=== PATIENT | male | born 1940 | race Caucasian/White ===

== ENCOUNTER → 2017-08-25 | Outpatient (CLI) | payer MEDICARE ==
--- NOTE | 2017-08-25 11:51 | RAD ---
CT of the lumbar spine without contrast 08/25/2017 Indication: Low back pain following recent fall. Comparison study: None Technique: Multidetector CT imaging of the lumbar spine was performed without the administration of contrast. Findings: No evidence of acute fracture or alignment abnormality is identified. No spondylolysis or significant spondylolisthesis is seen. Vertebral body heights are maintained. There is diffuse degenerative disc space narrowing throughout the lumbar spine. Facet joints remain aligned. There is diffuse facet arthrosis. Large bridging vertebral body osteophytes are seen laterally. There are posterior projecting disc osteophyte complexes at multiple levels. At L1-L2 there is mild acquired spinal stenosis. There is a mild dextrocurvature of the superior lumbar spine results in minimal lateral subluxation towards the right at L3-L4.. This in conjunction with degenerative disc disease produces at least moderate spinal stenosis. Mild stenosis is seen at L4-L5. No acute soft tissue changes are identified. Impression: Degenerative changes of the lumbar spine as described without evidence of acute fracture or alignment abnormality
== END | disposition home or self-care (01) ==
LOC: RAD 10:49
PROVIDERS: ATTEND Family Medicine
DX: M48.57XA Collapsed vertebra, not elsewhere classified, lumbosacral region, initial encounter for fracture (principal); M48.061 Spinal stenosis, lumbar region without neurogenic claudication; M47.896 Other spondylosis, lumbar region
CPT/HCPCS: 72131